=== PATIENT | female | born 1985 | race Two or more races ===

== ENCOUNTER → 2016-09-04 | Outpatient (CLI) | payer SELFPAY ==
--- NOTE | 2016-09-04 09:02 | RAD ---
Chest radiograph 09/04/2016 at 0756 hours Indication: Chest congestion with productive cough Technique: PA and lateral views of the chest are provided. Findings: Cardiomediastinal silhouette is within normal limits. No pleural effusions, pulmonary vascular congestion or pneumothorax. The lungs are clear. Osseous structures are normal. Impression: No acute cardiopulmonary process.
== END | disposition home or self-care (01) ==
LOC: DXRADRC 07:53
PROVIDERS: ATTEND Physician Assistant Medical
DX: R05 Cough (principal); R09.89 Other specified symptoms and signs involving the circulatory and respiratory systems
CPT/HCPCS: 71020